=== PATIENT | male | born 1985 | race Caucasian/White ===

== ENCOUNTER 2022-05-01 22:44 | Emergency (ER) | payer OTHER ==
[~2022-05-01] VITALS: Ht 170.2 cm; Wt 79.4 kg
--- NOTE | 2022-05-01 22:50 | NUR ---
CASPER C/O SI WITH PLAN TO OD ON METH -HI. PT A/OX3. TOLERATING R/A WELL WITH NO SOB. PT CHANGED INTO GOWN, BELONGINGS COLLECTED AND PLACED IN STORAGE ROOM. SECURITY WANDED PT. SAFETY MEASURES IN PLACE.
--- NOTE | 2022-05-01 23:08 | NUR ---
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 URINE AND COVID ANTIGEN SWAB COLLECTED AND SENT TO LAB
[2022-05-01 23:24] LABS: BASOPHILS # (AUTO) 0.1 K/uL (0.0-0.2); BASOPHILS % (AUTO) 0.4 % (0.0-2.0); EOSINOPHILS % (AUTO) 2.5 % (0.0-6.0); HEMATOCRIT 48 % (39-51); HEMOGLOBIN 16.2 g/dL (13.5-17.5); LYMPHOCYTES # (AUTO) 3.1 K/uL (0.8-4.8); LYMPHOCYTES % (AUTO) 24.3 % (20.0-44.0); MEAN CORPUSCULAR HGB CONC 34 g/dl (31.0-36.0); MEAN CORPUSCULAR VOLUME 93 fL (80-96); MONOCYTES # (AUTO) 1.4 K/uL (0.1-1.30); MONOCYTES % (AUTO) 10.8 % (2.0-12.0); PLATELET COUNT (AUTO) 340 K/uL (150-450); RED BLOOD CELL COUNT(AUTO) 5.21 MIL/uL (4.5-6.0); WHITE BLOOD COUNT (AUTO) 12.9 K/uL (4.3-11.0)
[2022-05-01 23:24] LABS: BILIRUBIN,URINE SMALL (NEGATIVE); COLOR,URINE YELLOW (YELLOW); LEUKOCYTE ESTERASE ,URINE NEGATIVE (NEGATIVE); NITRITE, URINE NEGATIVE (NEGATIVE); PROTEIN,URINE 30 mg/dl (NEGATIVE); UGLUCOSE NEGATIVE (NEGATIVE)
[2022-05-01 23:42] LABS: CALCIUM, SERUM 8.6 mg/dL (8.5-10.1); CARBON DIOXIDE 32 mmol/L (21-32); CHLORIDE 100 mmol/L (98-107); CREATININE 1.1 mg/dL (0.6-1.3); GLUCOSE 92 mg/dL (74-106); POTASSIUM 3.6 mmol/L (3.5-5.1); SODIUM SERUM 136 mmol/L (136-145); UREA NITROGEN, BLOOD 22 mg/dL (7-18)
[2022-05-01 23:48] LABS: ALANINE AMINOTRANSFERASE 106 U/L (12-78); ALBUMIN 3.8 g/dL (3.4-5.0); ALCOHOL, BLOOD < 3 mg/dL (0-0); ALKALINE PHOSPHATASE 94 U/L (46-116); ASPARTATE AMINOTRANSFERASE 65 U/L (15-37); BILIRUBIN,DIRECT 0.2 mg/dL (0.0-0.2); BILIRUBIN,TOTAL 0.8 mg/dL (0.2-1.0); TOTAL PROTEIN, SERUM 8.5 g/dL (6.4-8.2)
[2022-05-01 23:49] LABS: ACETAMINOPHEN < 2 ug/ml (10-30)
--- NOTE | 2022-05-02 06:50 | NUR ---
PER GIO AT [facility], PT GOT ACCEPTEDAT [facility]. ACCEPTING : REANNA # FOR REPORT: [phone] [id number] PLEASE TRANSFER THE PT AFTER 0900
--- NOTE | 2022-05-02 06:54 | NUR ---
[facility] ETA:1000
[2022-05-02 07:41] VITALS: BP 133/82
--- NOTE | 2022-05-02 09:24 | NUR ---
REPORT GIVEN TO SHAE PEREYRA FOR [facility]
--- NOTE | 2022-05-02 09:24 | NUR ---
PT ACCEPTED TO [facility] ROOM [id number]
--- NOTE | 2022-05-02 10:06 | NUR ---
REPORT GIVEN TO AMBULANCE STAFF
--- NOTE | 2022-05-02 10:16 | NUR ---
THE PATIENT IS TRANSFERED TO [facility] IN STABLE CONDITION AND VIA ARRANGED TRANSPO.
== END 2022-05-02 10:17 ==
LOC: ER 22:44
DX: R45.851 Suicidal ideations (principal); F19.10 Other psychoactive substance abuse, uncomplicated; F15.10 Other stimulant abuse, uncomplicated; D72.829 Elevated white blood cell count, unspecified; R74.01 Elevation of levels of liver transaminase levels; Z20.822 Contact with and (suspected) exposure to COVID-19; N28.9 Disorder of kidney and ureter, unspecified
CPT/HCPCS: 36415; 80048; 80076; 80143; 80307; 80320; 81003; 85025; 87426; 99285; C9803; G0480